=== PATIENT | male | born 1955 | race Caucasian/White ===

== ENCOUNTER 2024-11-19 13:39 | Inpatient (IN) | payer MEDICARE ==
[~2024-11-19] VITALS: Ht 177.8 cm; Wt 82.6 kg
[2024-11-19 14:16] LABS: BASOPHILS ABSOLUTE AUTO 0.04 K/mm3 (0.00-0.23); BASOPHILS PERCENT AUTO 1 % (0-2); EOSINOPHILS ABSOLUTE AUTO 0.22 K/mm3 (0.00-0.68); EOSINOPHILS PERCENT AUTO 3 % (0-6); Hemoglobin 14.7 g/dL (13.5-17.5); IMMATURE GRAN ABSOLUTE AUTO 0.02 K/mm3 (0.00-0.10); IMMATURE GRAN PERCENT AUTO 0 % (0-1); LYMPHOCYTES ABSOLUTE AUTO 1.14 K/mm3 (0.84-5.20); LYMPHOCYTES PERCENT AUTO 16 % (21-46); MONOCYTES ABSOLUTE AUTO 0.78 K/mm3 (0.16-1.47); MONOCYTES PERCENT AUTO 11 % (4-13); Mean Corpuscular HGB 31.2 pg (26.0-34.0); Mean Corpuscular Volume 89 fL (80-100); Mean Platelet Volume 9.1 fL (9.1-12.4); NEUTROPHILS ABSOLUTE AUTO 4.79 K/mm3 (1.96-9.15); NEUTROPHILS PERCENT AUTO 69 % (41-73); Platelet Count 153 K/mm3 (150-400); RDW Coefficient Variation 12.4 % (11.7-14.2); Red Blood Cell Count 4.71 M/mm3 (4.30-5.90); White Blood Cell Count 6.99 K/mm3 (4.00-11.30)
[2024-11-19 14:51] LABS: Albumin, Blood 3.5 g/dL (3.4-5.0); Albumin/Globulin Ratio 0.8 (0.8-1.8); Bilirubin, Total 0.6 mg/dL (0.1-1.0); Bun/Creatinine Ratio 19.7 (12.0-20.0); Creatinine, Blood 1.17 mg/dL (0.60-1.20); Globulin, Blood 4.2 g/dL (2.2-4.0); Potassium, Blood 4.1 mmol/L (3.5-5.5); Total Protein, Blood 7.7 g/dL (6.4-8.2)
[2024-11-19] MEDS ORDERED: FLU VACC TS2024-25(6MOS UP)/PF 45 MCG/0.5 ML SYRINGE IM SCH (17:25)
[2024-11-19] MEDS ORDERED: Ondansetron HCl 2 MG / ML 2ML Vial IV PRN (17:25)
[2024-11-19] MEDS ORDERED: NS 1,000 ML IV SCH (17:25)
[2024-11-19 17:51] LABS: Anti-Xa UFH, PHA Monitoring <0.10 IU/mL; International Normalized Ratio 1.02; Prothrombin Time Results 10.9 Sec (9.7-11.5)
[2024-11-19] MEDS ORDERED: Heparin Sodium,Porcine/0.5 NS 500 ML IV SCH (18:05)
[2024-11-19] MEDS ORDERED: Heparin Sodium 5000 Units/ML 1ML MDV IV ONE (18:05)
[2024-11-19] MEDS ORDERED: NS 1,000 ML IV ONE (18:47)
[2024-11-20] MEDS ORDERED: Dose Adjust by Pharmacy XX STA (02:26)
[2024-11-20 06:14] LABS: BASOPHILS ABSOLUTE AUTO 0.05 K/mm3 (0.00-0.23); BASOPHILS PERCENT AUTO 1 % (0-2); EOSINOPHILS ABSOLUTE AUTO 0.18 K/mm3 (0.00-0.68); EOSINOPHILS PERCENT AUTO 2 % (0-6); Hemoglobin 13.7 g/dL (13.5-17.5); IMMATURE GRAN ABSOLUTE AUTO 0.04 K/mm3 (0.00-0.10); IMMATURE GRAN PERCENT AUTO 1 % (0-1); LYMPHOCYTES ABSOLUTE AUTO 1.14 K/mm3 (0.84-5.20); LYMPHOCYTES PERCENT AUTO 15 % (21-46); MONOCYTES ABSOLUTE AUTO 0.75 K/mm3 (0.16-1.47); MONOCYTES PERCENT AUTO 10 % (4-13); Mean Corpuscular HGB 30.8 pg (26.0-34.0); Mean Corpuscular HGB Conc 34.3 g/dL (31.5-36.5); Mean Corpuscular Volume 90 fL (80-100); Mean Platelet Volume 8.9 fL (9.1-12.4); NEUTROPHILS ABSOLUTE AUTO 5.59 K/mm3 (1.96-9.15); NEUTROPHILS PERCENT AUTO 72 % (41-73); Platelet Count 154 K/mm3 (150-400); RDW Coefficient Variation 12.4 % (11.7-14.2); Red Blood Cell Count 4.45 M/mm3 (4.30-5.90); White Blood Cell Count 7.75 K/mm3 (4.00-11.30)
[2024-11-20 06:32] LABS: Albumin, Blood 2.9 g/dL (3.4-5.0); Albumin/Globulin Ratio 0.8 (0.8-1.8); Bilirubin, Total 0.5 mg/dL (0.1-1.0); Bun/Creatinine Ratio 20.7 (12.0-20.0); Calcium, Blood 8.1 mg/dL (8.5-10.1); Creatinine, Blood 0.97 mg/dL (0.60-1.20); Globulin, Blood 3.7 g/dL (2.2-4.0); Potassium, Blood 4.2 mmol/L (3.5-5.5); Total Protein, Blood 6.6 g/dL (6.4-8.2)
[2024-11-20] MEDS ORDERED: Enoxaparin 100 MG/ML 1ML SYR SC SCH ×2 (12:00→15:15)
[2024-11-20 15:15] VITALS: BP 132/101
--- NOTE | 2024-11-20 15:48 | NUR ---
arrival to pcu patient arrived to pcu from er at 1515 and transfered into the room independently from the er wheelchair. patient is alert and oriented x4. neuro is intact. patient denies pain, chest pain/pressure or shortness of breath. lung sounds clear throughout. skin is clean dry and intact. gi/gi within normal limits. patient is independent in adls. patient oriented to room and to call before getting up for safety. admit is done and admit assessment is done.
--- NOTE | 2024-11-20 17:41 | NUR ---
shift summary no acute changes since patient arrival. plan remains up to date
[2024-11-20 19:36] VITALS: BP 120/84
--- NOTE | 2024-11-20 21:48 | NUR ---
ASSUMPTION OF CARE UPON INITIAL ASSESSMENT, PT IS A&OX4, PLEASANT, COOPERATIVE WITH CARES. DYSPNEA UPON EXERTION TO THE BATHROOM, DESATURATION TO A LOW OF 85, REQUIRING 0.5L O2 VIA NC TO RECUPERATE. PT STABILIZED. NOW ON ROOM AIR. PT DENIES PAIN/DISCOMFORT. NEEDS HAVE BEEN MET. CONTINOUS TELEMETRY MONITORING.
[2024-11-21 00:07] VITALS: BP 119/89
[2024-11-21 03:45] VITALS: BP 117/84
[2024-11-21 04:56] LABS: BASOPHILS ABSOLUTE AUTO 0.04 K/mm3 (0.00-0.23); BASOPHILS PERCENT AUTO 1 % (0-2); EOSINOPHILS ABSOLUTE AUTO 0.23 K/mm3 (0.00-0.68); EOSINOPHILS PERCENT AUTO 4 % (0-6); Hematocrit 40.6 % (37.0-53.0); IMMATURE GRAN ABSOLUTE AUTO 0.02 K/mm3 (0.00-0.10); IMMATURE GRAN PERCENT AUTO 0 % (0-1); LYMPHOCYTES ABSOLUTE AUTO 0.95 K/mm3 (0.84-5.20); LYMPHOCYTES PERCENT AUTO 16 % (21-46); MONOCYTES ABSOLUTE AUTO 0.66 K/mm3 (0.16-1.47); MONOCYTES PERCENT AUTO 11 % (4-13); Mean Corpuscular HGB 31.3 pg (26.0-34.0); Mean Corpuscular HGB Conc 34.5 g/dL (31.5-36.5); Mean Corpuscular Volume 91 fL (80-100); Mean Platelet Volume 9.1 fL (9.1-12.4); NEUTROPHILS ABSOLUTE AUTO 4.05 K/mm3 (1.96-9.15); NEUTROPHILS PERCENT AUTO 68 % (41-73); Platelet Count 162 K/mm3 (150-400); RDW Coefficient Variation 12.5 % (11.7-14.2); RDW Standard Deviation 40.9 fL (35.1-46.3); Red Blood Cell Count 4.48 M/mm3 (4.30-5.90); White Blood Cell Count 5.95 K/mm3 (4.00-11.30)
[2024-11-21 05:26] LABS: Albumin/Globulin Ratio 0.8 (0.8-1.8); Bilirubin, Total 0.6 mg/dL (0.1-1.0); Bun/Creatinine Ratio 25.4 (12.0-20.0); Calcium, Blood 8.5 mg/dL (8.5-10.1); Creatinine, Blood 0.98 mg/dL (0.60-1.20); Globulin, Blood 3.8 g/dL (2.2-4.0); Potassium, Blood 4.1 mmol/L (3.5-5.5); Total Protein, Blood 6.8 g/dL (6.4-8.2)
[2024-11-21 08:27] VITALS: BP 123/85
--- NOTE | 2024-11-21 09:57 | NUR ---
am note this rn assumed care at 0700. vital signs stable. spo2 >90% on room air and becomes shortness of breath with activity. patient is alert and oriented x4. neuro is intact. perrla. patient is able to make needs known and uses call light appropriately. patient is independent in the room. lung sounds clear throughout. patient denies pain or chest pain/pressure. see shift assessment for further detials. Md Real and Md Hobson in to see patient. While seeing the patient discussing the results of patient echo that has right heart strain, switching to oral anticogulation eliquis this afternoon and the doses the patient will be taking, and to limit activity but to not just lay in bed. 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 The plan for patient to stay overnight and go home tomorrow and follow up with [facility] care provider and repeat echo in 3 months.
[2024-11-21] MEDS ORDERED: Apixaban 5 MG Tab PO SCH (12:00)
[2024-11-21 12:41] VITALS: BP 129/95
[2024-11-21 17:19] VITALS: BP 138/96
--- NOTE | 2024-11-21 17:59 | NUR ---
shift summary patient vitals remain stable. patient is independent in the room and with adls. plan to go home. no acute changes. see previous note
[2024-11-21 20:18] VITALS: BP 130/88
[2024-11-22 00:35] VITALS: BP 135/119
[2024-11-22 03:51] VITALS: BP 109/83
[2024-11-22 04:38] LABS: BASOPHILS ABSOLUTE AUTO 0.04 K/mm3 (0.00-0.23); BASOPHILS PERCENT AUTO 1 % (0-2); EOSINOPHILS PERCENT AUTO 6 % (0-6); Hematocrit 40.1 % (37.0-53.0); Hemoglobin 13.8 g/dL (13.5-17.5); IMMATURE GRAN ABSOLUTE AUTO 0.01 K/mm3 (0.00-0.10); IMMATURE GRAN PERCENT AUTO 0 % (0-1); LYMPHOCYTES ABSOLUTE AUTO 0.92 K/mm3 (0.84-5.20); LYMPHOCYTES PERCENT AUTO 18 % (21-46); MONOCYTES ABSOLUTE AUTO 0.59 K/mm3 (0.16-1.47); MONOCYTES PERCENT AUTO 11 % (4-13); Mean Corpuscular HGB Conc 34.4 g/dL (31.5-36.5); Mean Corpuscular Volume 90 fL (80-100); Mean Platelet Volume 9.1 fL (9.1-12.4); NEUTROPHILS ABSOLUTE AUTO 3.35 K/mm3 (1.96-9.15); NEUTROPHILS PERCENT AUTO 64 % (41-73); Platelet Count 186 K/mm3 (150-400); RDW Coefficient Variation 12.4 % (11.7-14.2); RDW Standard Deviation 41.1 fL (35.1-46.3); Red Blood Cell Count 4.45 M/mm3 (4.30-5.90); White Blood Cell Count 5.21 K/mm3 (4.00-11.30)
[2024-11-22 04:59] LABS: Albumin, Blood 2.9 g/dL (3.4-5.0); Albumin/Globulin Ratio 0.8 (0.8-1.8); Bilirubin, Total 0.7 mg/dL (0.1-1.0); Bun/Creatinine Ratio 20.1 (12.0-20.0); Calcium, Blood 8.4 mg/dL (8.5-10.1); Creatinine, Blood 0.9 mg/dL (0.60-1.20); Globulin, Blood 3.8 g/dL (2.2-4.0); Potassium, Blood 3.9 mmol/L (3.5-5.5); Total Protein, Blood 6.7 g/dL (6.4-8.2)
[2024-11-22 07:43] VITALS: BP 104/88
--- NOTE | 2024-11-22 10:46 | NUR ---
AM NOTE: PATIENT ALERT AND ORIENTED. PERRLA, WEARING GLASSES. DENIES PAIN. UP IND IN ROOM. SITTING IN RECLINER THIS MORNING. ON ROOM AIR SATING MID 90'S. DENIES SOB. LUNG SOUNDS CLEAR. DENIES COUGH. TELE SHOWING SR WITH HR 70'S. STABLE BLOOD PRESSURE. NO EDEMA NOTED. IV SALINE LOCKED. THIS RN EDUCATED ON PO ELIQUIS. BOWEL TONES PRESENT. TOLERATING PO DIET. DENIES ABDOMINAL PAIN/NAUSEA. SKIN OVERALL C/D/I. DR. COOPER AND DR. TERRELL TO BEDSIDE THIS AM. PLAN FOR DISCHARGE TODAY. AT BEDSIDE AND UPDATED ON PLAN OF CARE. CALL LIGHT IN REACH.
[2024-11-22 11:39] VITALS: BP 111/81
[2024-11-22] MEDS ORDERED: ELIQUIS5 M2 PO (12:05)
--- NOTE | 2024-11-22 12:37 | NUR ---
DISCHARGE: NO ACUTE CHANGES, IV REMOVED WNL. THIS RN EDUCATED ON NEW MEDICATIONS, ELIQUIS DOSING, MEDS FAXED TO [facility], FOLLOW UP APPOINTMENTS, SIGNS AND SYMPTOMS OF WHEN TO RETURN AND PROVIDED ELIQUIS COUPON. IN TO PICK PATIENT UP, PATIENT LEFT UNIT WITH ALL PERSONAL BELONGINGS AND DISCHARGE PACKET.
[2024-11-23 05:34] LABS: CARDIOLIPIN ANTIBODY IGG <10 GPL (<=14); CARDIOLIPIN ANTIBODY IGM <10 MPL (<=12)
[2024-11-23 10:56] LABS: ANTI-XA QUALITATIVE INTERP Not Performed (Not Present); ANTICOAG MEDICATION NEUTRALIZ Not Performed (Not Performed); DRVVT 1:1 MIX RATIO Not Performed (<=1.20); DRVVT CONFIRMATION RATIO Not Performed (<=1.20); HEXAGONAL PHOSPHOLIPID CONFIRM Not Performed s (<=7.9); LUPUS ANTICOAGULANT, INTERP Not Done; NEUTRALIZED DRVVT SCREEN RATIO Not Performed (<=1.20); NEUTRALIZED PTT-LA RATIO Not Performed (<=1.20); THROMBIN TIME (TT) Not Performed s (<=19.5)
[2024-11-23 11:07] LABS: B2GLYCOPROTEIN 1, IGG ANTIBODY <10 SGU (<=20); B2GLYCOPROTEIN 1, IGM ANTIBODY <10 SMU (<=20)
[2024-11-23 14:51] LABS: HOMOCYSTEINE, TOTAL 12 umol/L (0-15)
[2024-11-28] MEDS ORDERED: Apixaban 5 MG Tab PO SCH (09:00)
== END 2024-11-22 12:20 | disposition home or self-care (01) | DRG 176 ==
LOC: ER 13:39 → ERHOLD 13:40 → PCU 11-20 15:10
PROVIDERS: Pharmacist; Physician Assistant; ADMIT Internal Medicine
DX: I26.94 Multiple subsegmental thrombotic pulmonary emboli without acute cor pulmonale (principal); I82.412 Acute embolism and thrombosis of left femoral vein; I82.432 Acute embolism and thrombosis of left popliteal vein; R91.1 Solitary pulmonary nodule
CPT/HCPCS: 36415; 71046; 71260; 80053; 83690; 83880; 84484; 85025; 85520; 85610; 85730; 93005; 93010; 93306; 93970; 96365-59; 96366; 99285-25; A9270; G0378; J1644; J1650; J7030; Q9967